=== PATIENT | female | born 1985 | race Hispanic/Latino ===

== ENCOUNTER 2023-06-29 23:41 | Emergency (ER) | payer OTHER, SELFPAY ==
[2023-06-30] MEDS ORDERED: Bupivacaine PF 0.5% 30 ML VIAL ONE (00:52)
== END 2023-06-30 01:37 | disposition home or self-care (01) ==
LOC: CSHERS 23:41
DX: K04.7 Periapical abscess without sinus (principal); K03.81 Cracked tooth; F17.210 Nicotine dependence, cigarettes, uncomplicated; M41.9 Scoliosis, unspecified
CPT/HCPCS: 64400; S0020